=== PATIENT | male | born 1980 | race Caucasian/White ===

== ENCOUNTER 2017-03-19 03:02 | Inpatient (IN) | payer OTHER ==
[~2017-03-19] VITALS: Ht 180.3 cm; Wt 156.3 kg
[~2017-03-19 03:02] MED LIST: PARO10TA89 PO; VITAD1000 PO
[2017-03-19 03:49] LABS: BASOPHILS # (AUTO) 0.02 K/uL (0.00-0.20); BASOPHILS % (AUTO) 0.2 % (0.0-2.0); EOSINOPHILS # (AUTO) 0.02 K/uL (0.00-0.70); EOSINOPHILS % (AUTO) 0.25 % (1.0-6.0); HEMATOCRIT 43.8 % (41-53); HEMOGLOBIN 14.6 g/dL (13.5-17.5); LYMPHOCYTES # (AUTO) 1.6 K/uL (1.0-4.8); LYMPHOCYTES % (AUTO) 15.8 % (22.0-44.0); MEAN CORPUSCULAR HEMOGLOBIN 28.7 pg (26.0-34.0); MEAN CORPUSCULAR HGB CONC 33.3 G/dL (31.0-37.0); MEAN CORPUSCULAR VOLUME 86 fL (80-100); MONOCYTES # (AUTO) 0.3 K/uL (0.1-1.0); MONOCYTES % (AUTO) 2.9 % (2.0-9.0); PLATELET COUNT (AUTO) 228 K/uL (150-450); RED BLOOD CELL COUNT(AUTO) 5.08 MIL/uL (4.50-5.90); RED CELL DISTRIBUTION WIDTH 14.4 % (11.5-14.5); WHITE BLOOD COUNT (AUTO) 9.9 K/uL (4.5-11.0)
[2017-03-19 04:02] LABS: ANION GAP 14 mmol/L (8-16); CARBON DIOXIDE 22 mmol/L (22-29); CHLORIDE 105 mmol/L (98-107); CREATININE 1.02 mg/dL (0.60-1.30); GLOMERULAR FILTR. RATE CALC > 60 mL/min (>60); POTASSIUM 3.8 mmol/L (3.5-5.1); SODIUM SERUM 141 mmol/L (136-145); UREA NITROGEN, BLOOD 10 mg/dL (7-18)
[2017-03-19 04:09] LABS: ALANINE AMINOTRANSFERASE 43 U/L (12-78); ALBUMIN 3.8 g/dL (3.4-5.0); ASPARTATE AMINOTRANSFERASE 23 U/L (15-37); BILIRUBIN,TOTAL 0.2 mg/dL (0.1-1.0); TOTAL PROTEIN, SERUM 7.5 g/dL (6.4-8.2)
[2017-03-19] MEDS ORDERED: LORazepam 2 MG TABLET PO ONE (04:30)
[2017-03-19] MEDS ORDERED: HALOPERIDOL 5 MG TABLET PO PRN (04:30)
[2017-03-19 05:25] LABS: CHOL/HDL RATIO 3.9 (4.2-7.3)
[2017-03-19] MEDS ORDERED: CHOL200016 PO (13:49)
[2017-03-19] MEDS ORDERED: PARO20TA24 PO (13:49)
[2017-03-20] MEDS: VENLAFAXINE HCL 75 MG ER CAPSULE PO SCH (08:06)
[2017-03-20] MEDS: CHOLECALCIFEROL (VIT D3) 1,000 UNITS TABLET PO SCH (08:07)
[2017-03-20] MEDS ORDERED: ACETAMINOPHEN 325 MG TABLET PO PRN (09:45)
[2017-03-20 09:58] VITALS: BP 106/77
[2017-03-20] MEDS ORDERED: IBUPROFEN 600 MG TABLET PO PRN (10:15)
[2017-03-20 11:11] LABS: APPEARANCE,URINE CLEAR (CLEAR); GLUCOSE, URINE (UA) NEGATIVE (NEGATIVE); KETONES,URINE 15 mg/dL (NEGATIVE); LEUKOCYTE ESTERASE ,URINE NEGATIVE (NEGATIVE); OCCULT BLOOD,URINE NEGATIVE (NEGATIVE); PH,URINE 5.5 (5.0-8.0); PROTEIN,URINE NEGATIVE (NEGATIVE)
[2017-03-20 11:12] LABS: ADD UA MICROSCOPIC NO
[2017-03-20 16:00] VITALS: BP 140/85
[2017-03-21] MEDS: VENLAFAXINE HCL 75 MG ER CAPSULE PO SCH (08:23)
[2017-03-21] MEDS: CHOLECALCIFEROL (VIT D3) 1,000 UNITS TABLET PO SCH (08:24)
[2017-03-21 09:30] VITALS: BP 126/81
[2017-03-21] MEDS: LORazepam 2 MG TABLET PO PRN (09:45)
[2017-03-21 16:46] VITALS: BP 142/83
[2017-03-22] MEDS: CHOLECALCIFEROL (VIT D3) 1,000 UNITS TABLET PO SCH (08:55)
[2017-03-22] MEDS: VENLAFAXINE HCL 75 MG ER CAPSULE PO SCH (08:55)
[2017-03-22 09:35] VITALS: BP 166/90
[2017-03-22] MEDS: LORazepam 2 MG TABLET PO PRN (10:45)
[2017-03-22] MEDS: ATENOLOL 50 MG TABLET PO SCH (13:16)
[2017-03-22 16:41] VITALS: BP 129/79
[2017-03-23 08:05] VITALS: BP 126/87
[2017-03-23] MEDS ORDERED: ALBUTEROL SULFATE HFA 90 MCG/PUFF 8 GM INHALER IH PRN (08:30)
[2017-03-23] MEDS ORDERED: PETROLATUM,WHITE 71 GM JELLY TP PRN (08:30)
[2017-03-23] MEDS ORDERED: ONDANSETRON HCL 4 MG TABLET PO PRN (08:30)
[2017-03-23] MEDS ORDERED: CloNIDine HCL 0.1 MG TABLET PO PRN (08:30)
[2017-03-23] MEDS ORDERED: MAG HYDROX/AL HYDROX/SIMETH ES 30 ML SUSPENSION UDCUP PO PRN (08:30)
[2017-03-23] MEDS ORDERED: BENZOCAINE/MENTHOL LOZENGE [8 LOZENGES/PACKET] MM PRN (08:30)
[2017-03-23] MEDS ORDERED: BACITRACIN 28.4 GM OINTMENT TP PRN (08:30)
[2017-03-23] MEDS ORDERED: MAGNESIUM HYDROXIDE SUSPENSION 30 ML UDCUP PO PRN (08:30)
[2017-03-23] MEDS: ATENOLOL 50 MG TABLET PO SCH (08:47)
[2017-03-23] MEDS: CHOLECALCIFEROL (VIT D3) 1,000 UNITS TABLET PO SCH (08:47)
[2017-03-23] MEDS ORDERED: VENLAFAXINE HCL 150 MG ER CAPSULE PO SCH (09:00)
[2017-03-23] MEDS: LOPERAMIDE HCL 2 MG CAPSULE PO PRN (09:03)
[2017-03-23 17:00] VITALS: BP 133/85
[2017-03-23] MEDS ORDERED: HydrOXYzine PAMOATE 25 MG CAPSULE PO PRN (22:30)
[2017-03-24] MEDS: ZOLPIDEM TARTRATE 10 MG TABLET PO PRN ×2 (00:13→23:51)
[2017-03-24 04:35] VITALS: BP 127/78
[2017-03-24 08:00] VITALS: BP 113/61
[2017-03-24] MEDS ORDERED: VENLAFAXINE HCL 150 MG ER CAPSULE PO SCH (09:00)
[2017-03-24] MEDS: CHOLECALCIFEROL (VIT D3) 1,000 UNITS TABLET PO SCH (09:22)
[2017-03-24] MEDS: ATENOLOL 50 MG TABLET PO SCH (09:22)
[2017-03-24] MEDS: VENLAFAXINE HCL 75 MG ER CAPSULE PO SCH (09:22)
[2017-03-24 17:14] VITALS: BP 127/68
[2017-03-24] MEDS: LOPERAMIDE HCL 2 MG CAPSULE PO PRN (19:20)
[2017-03-25 06:30] LABS: BASOPHILS % (AUTO) 0.5 % (0.0-2.0); EOSINOPHILS % (AUTO) 1.3 % (1.0-6.0); HEMATOCRIT 46.6 % (41-53); HEMOGLOBIN 15.5 g/dL (13.5-17.5); LYMPHOCYTES # (AUTO) 2.4 K/uL (1.0-4.8); MEAN CORPUSCULAR HEMOGLOBIN 28.8 pg (26.0-34.0); MEAN CORPUSCULAR HGB CONC 33.2 G/dL (31.0-37.0); MEAN CORPUSCULAR VOLUME 87 fL (80-100); MONOCYTES # (AUTO) 0.6 K/uL (0.1-1.0); MONOCYTES % (AUTO) 5.4 % (2.0-9.0); NEUTROPHILS # (AUTO) 7.8 K/uL (1.8-7.7); NEUTROPHILS % (AUTO) 70.8 % (40.0-70.0); PLATELET COUNT (AUTO) 226 K/uL (150-450); RED BLOOD CELL COUNT(AUTO) 5.36 MIL/uL (4.50-5.90); RED CELL DISTRIBUTION WIDTH 14.2 % (11.5-14.5)
[2017-03-25 06:59] LABS: HEMOGLOBIN A1C 6.1 % (4.5-6.2)
[2017-03-25 07:04] LABS: ALANINE AMINOTRANSFERASE 46 U/L (12-78); ALBUMIN 3.4 g/dL (3.4-5.0); ANION GAP 8 mmol/L (8-16); ASPARTATE AMINOTRANSFERASE 21 U/L (15-37); BILIRUBIN,TOTAL 0.6 mg/dL (0.1-1.0); CALCIUM, TOTAL 8.5 mg/dL (8.8-10.5); CARBON DIOXIDE 26 mmol/L (22-29); CHLORIDE 105 mmol/L (98-107); CHOL/HDL RATIO 3.7 (4.2-7.3); CREATININE 1.01 mg/dL (0.60-1.30); GLOMERULAR FILTR. RATE CALC > 60 mL/min (>60); PHOSPHORUS 3.3 mg/dL (2.5-4.9); POTASSIUM 3.5 mmol/L (3.5-5.1); SODIUM SERUM 139 mmol/L (136-145); THYROID STIMULATING HORMONE 1.24 uIU/mL (0.36-3.74); TOTAL PROTEIN, SERUM 6.8 g/dL (6.4-8.2); UREA NITROGEN, BLOOD 12 mg/dL (7-18)
[2017-03-25 08:12] VITALS: BP 121/72
[2017-03-25] MEDS ORDERED: VENL-67 PO (08:19)
[2017-03-25] MEDS ORDERED: ATEN50TA PO (08:21)
[2017-03-25] MEDS ORDERED: VITAD1000 PO (08:22)
[2017-03-25] MEDS: VENLAFAXINE HCL 75 MG ER CAPSULE PO SCH (08:40)
[2017-03-25] MEDS: CHOLECALCIFEROL (VIT D3) 1,000 UNITS TABLET PO SCH (08:41)
[2017-03-25] MEDS: ATENOLOL 50 MG TABLET PO SCH (08:41)
[2017-03-26 04:07] LABS: HEPATITIS C AB SCREEN <0.1 s/co ratio (0.0-0.9)
== END 2017-03-25 12:30 | disposition home or self-care (01) | DRG 885 ==
LOC: EMS 03:03 → 3EX 05:15
PROVIDERS: ADMIT Psychiatry & Neurology Psychiatry; ATTEND Psychiatry & Neurology Psychiatry
DX: F33.2 Major depressive disorder, recurrent severe without psychotic features (principal); R45.851 Suicidal ideations; E66.01 Morbid (severe) obesity due to excess calories; E55.9 Vitamin D deficiency, unspecified; F14.90 Cocaine use, unspecified, uncomplicated; I10 Essential (primary) hypertension; Z81.8 Family history of other mental and behavioral disorders; Z91.5 Personal history of self-harm; Z88.0 Allergy status to penicillin; Z72.89 Other problems related to lifestyle
CPT/HCPCS: 82306; 83036; 83735; 84100; 84443; 86706; 86707; 86709; 86803; 87340; 87350; 99285; G0480

== ENCOUNTER 2017-05-01 23:35 | Inpatient (IN) | payer OTHER ==
[~2017-05-01] VITALS: Ht 188 cm; Wt 155.0 kg
[~2017-05-01 23:35] MED LIST changes: +ATEN50TA PO; -PARO10TA89 PO; +VENL-67 PO
[2017-05-01] MEDS ORDERED: ARIP5TAB8 PO (23:45)
[2017-05-01] MEDS ORDERED: HYD25 PO (23:45)
[2017-05-02 00:01] LABS: BASOPHILS % (AUTO) 0.6 % (0.0-2.0); EOSINOPHILS % (AUTO) 0.8 % (1.0-6.0); HEMATOCRIT 47.9 % (41-53); HEMOGLOBIN 15.8 g/dL (13.5-17.5); LYMPHOCYTES # (AUTO) 2.2 K/uL (1.0-4.8); LYMPHOCYTES % (AUTO) 27.8 % (22.0-44.0); MEAN CORPUSCULAR HEMOGLOBIN 28.8 pg (26.0-34.0); MEAN CORPUSCULAR HGB CONC 32.9 G/dL (31.0-37.0); MEAN CORPUSCULAR VOLUME 87 fL (80-100); MONOCYTES # (AUTO) 0.4 K/uL (0.1-1.0); MONOCYTES % (AUTO) 4.9 % (2.0-9.0); NEUTROPHILS # (AUTO) 5.1 K/uL (1.8-7.7); NEUTROPHILS % (AUTO) 65.9 % (40.0-70.0); PLATELET COUNT (AUTO) 255 K/uL (150-450); RED BLOOD CELL COUNT(AUTO) 5.48 MIL/uL (4.50-5.90); RED CELL DISTRIBUTION WIDTH 14.6 % (11.5-14.5); WHITE BLOOD COUNT (AUTO) 7.8 K/uL (4.5-11.0)
[2017-05-02 00:10] LABS: ANION GAP 11 mmol/L (8-16); CALCIUM, TOTAL 8.6 mg/dL (8.8-10.5); CARBON DIOXIDE 27 mmol/L (22-29); CHLORIDE 107 mmol/L (98-107); CREATININE 1.12 mg/dL (0.60-1.30); GLOMERULAR FILTR. RATE CALC > 60 mL/min (>60); POTASSIUM 3.3 mmol/L (3.5-5.1); SODIUM SERUM 145 mmol/L (136-145); UREA NITROGEN, BLOOD 6 mg/dL (7-18)
[2017-05-02 00:16] LABS: ALANINE AMINOTRANSFERASE 39 U/L (12-78); ALBUMIN 3.7 g/dL (3.4-5.0); ASPARTATE AMINOTRANSFERASE 30 U/L (15-37); BILIRUBIN,TOTAL 0.2 mg/dL (0.1-1.0); TOTAL PROTEIN, SERUM 7.8 g/dL (6.4-8.2)
[2017-05-02] MEDS ORDERED: HALOPERIDOL 5 MG TABLET PO ONE (00:45)
[2017-05-02] MEDS ORDERED: LORazepam 2 MG TABLET PO ONE (00:45)
[2017-05-02] MEDS ORDERED: HALOPERIDOL 5 MG TABLET PO PRN (01:00)
[2017-05-02] MEDS ORDERED: MAGNESIUM HYDROXIDE SUSPENSION 30 ML UDCUP PO PRN ×2 (01:00→08:45)
[2017-05-02] MEDS ORDERED: LORazepam 2 MG TABLET PO PRN (01:00)
[2017-05-02] MEDS ORDERED: LOPERAMIDE HCL 2 MG CAPSULE PO PRN ×2 (01:00→08:45)
[2017-05-02] MEDS ORDERED: MAG HYDROX/AL HYDROX/SIMETH ES 30 ML SUSPENSION UDCUP PO PRN ×2 (01:00→08:45)
[2017-05-02] MEDS ORDERED: POTASSIUM CHLORIDE 10% 40 MEQ/30 ML LIQUID UDCUP PO ONE (03:00)
[2017-05-02 04:06] VITALS: BP 129/90
[2017-05-02] MEDS ORDERED: INFLUENZA VIRUS VACCINE QVS 2017-18 (3YR+)/PF 60 MCG/0.5 ML SYRINGE IM ONE (05:00)
[2017-05-02] MEDS ORDERED: PNEUMOCOCCAL VACCINE POLYVALENT 0.5 ML VIAL [PPSV23] IM ONE (05:00)
[2017-05-02 08:44] VITALS: BP 134/83
[2017-05-02] MEDS ORDERED: ONDANSETRON HCL 4 MG TABLET PO PRN (08:45)
[2017-05-02] MEDS ORDERED: PETROLATUM,WHITE 71 GM JELLY TP PRN (08:45)
[2017-05-02] MEDS ORDERED: CloNIDine HCL 0.1 MG TABLET PO PRN (08:45)
[2017-05-02] MEDS ORDERED: BENZOCAINE/MENTHOL LOZENGE MM PRN (08:45)
[2017-05-02] MEDS ORDERED: ALBUTEROL SULFATE HFA 90 MCG/PUFF 8 GM INHALER IH PRN (08:45)
[2017-05-02] MEDS ORDERED: BACITRACIN 28.4 GM OINTMENT TP PRN (08:45)
[2017-05-02] MEDS: CHOLECALCIFEROL (VIT D3) 1,000 UNITS TABLET PO SCH (09:34)
[2017-05-02] MEDS: DOCUSATE SODIUM 100 MG CAPSULE PO SCH (09:34)
[2017-05-02] MEDS: OMEPRAZOLE 20 MG CAPSULE PO SCH (09:34)
[2017-05-02] MEDS: VENLAFAXINE HCL 150 MG ER CAPSULE PO SCH (10:14)
[2017-05-02 16:17] VITALS: BP 141/94
[2017-05-02] MEDS: MIRTAZAPINE 15 MG TABLET PO SCH (20:30)
[2017-05-02 22:19] VITALS: BP 127/76
[2017-05-02] MEDS: ZOLPIDEM TARTRATE 10 MG TABLET PO PRN (22:23)
[2017-05-03 01:53] VITALS: BP 135/86
[2017-05-03 08:57] VITALS: BP 132/75
[2017-05-03 09:01] LABS: HEMOGLOBIN A1C 5.9 % (4.5-6.2)
[2017-05-03] MEDS: DOCUSATE SODIUM 100 MG CAPSULE PO SCH (09:02)
[2017-05-03] MEDS: LISINOPRIL 10 MG TABLET PO SCH (09:02)
[2017-05-03] MEDS: OMEPRAZOLE 20 MG CAPSULE PO SCH (09:03)
[2017-05-03] MEDS: CHOLECALCIFEROL (VIT D3) 1,000 UNITS TABLET PO SCH (09:03)
[2017-05-03] MEDS: VENLAFAXINE HCL 150 MG ER CAPSULE PO SCH (09:03)
[2017-05-03 10:03] LABS: CHOL/HDL RATIO 3.9 (4.2-7.3); POTASSIUM 3.8 mmol/L (3.5-5.1); THYROID STIMULATING HORMONE 0.54 uIU/mL (0.36-3.74)
[2017-05-03 16:31] VITALS: BP 118/90
[2017-05-03] MEDS: MIRTAZAPINE 15 MG TABLET PO SCH (20:30)
[2017-05-04 00:58] VITALS: BP 117/78
[2017-05-04 08:13] VITALS: BP 126/70
[2017-05-04] MEDS: OMEPRAZOLE 20 MG CAPSULE PO SCH (08:13)
[2017-05-04] MEDS: CHOLECALCIFEROL (VIT D3) 1,000 UNITS TABLET PO SCH (08:13)
[2017-05-04] MEDS: LISINOPRIL 10 MG TABLET PO SCH (08:13)
[2017-05-04] MEDS: VENLAFAXINE HCL 150 MG ER CAPSULE PO SCH (08:13)
[2017-05-04] MEDS: SIMVASTATIN 10 MG TABLET PO SCH (08:13)
[2017-05-04] MEDS: OMEGA-3/DHA/EPA/FISH OIL 500 MG CAPSULE PO SCH (08:13)
[2017-05-04] MEDS: DOCUSATE SODIUM 100 MG CAPSULE PO SCH (08:13)
[2017-05-04 16:27] VITALS: BP 130/86
[2017-05-04] MEDS ORDERED: DOCUSATE SODIUM 100 MG CAPSULE PO PRN (16:45)
[2017-05-04] MEDS ORDERED: MIRTAZAPINE 15 MG TABLET PO SCH (21:00)
[2017-05-04] MEDS: ZOLPIDEM TARTRATE 10 MG TABLET PO PRN (21:43)
[2017-05-05 00:14] VITALS: BP 121/68
[2017-05-05] MEDS: CHOLECALCIFEROL (VIT D3) 1,000 UNITS TABLET PO SCH (08:07)
[2017-05-05] MEDS: OMEGA-3/DHA/EPA/FISH OIL 500 MG CAPSULE PO SCH (08:07)
[2017-05-05] MEDS: SIMVASTATIN 10 MG TABLET PO SCH (08:07)
[2017-05-05] MEDS: ARIPiprazole 5 MG TABLET PO SCH (08:08)
[2017-05-05] MEDS: OMEPRAZOLE 20 MG CAPSULE PO SCH (08:08)
[2017-05-05] MEDS: LISINOPRIL 10 MG TABLET PO SCH (08:12)
[2017-05-05 09:00] VITALS: BP 102/80
[2017-05-05] MEDS ORDERED: VENLAFAXINE HCL 75 MG ER CAPSULE PO SCH (09:00)
[2017-05-05 16:25] VITALS: BP 115/87
[2017-05-05] MEDS ORDERED: MIRTAZAPINE 15 MG TABLET PO SCH (21:00)
[2017-05-05] MEDS: ZOLPIDEM TARTRATE 10 MG TABLET PO PRN (22:00)
[2017-05-06 00:11] VITALS: BP 126/78
[2017-05-06] MEDS ORDERED: MIRT45TA PO (08:19)
[2017-05-06] MEDS ORDERED: VITAD1000 PO (08:23)
[2017-05-06] MEDS ORDERED: OMEG-50 PO (08:23)
[2017-05-06] MEDS ORDERED: OMEP10SU2 PO (08:23)
[2017-05-06] MEDS: CHOLECALCIFEROL (VIT D3) 1,000 UNITS TABLET PO SCH (08:23)
[2017-05-06] MEDS: OMEPRAZOLE 20 MG CAPSULE PO SCH (08:23)
[2017-05-06] MEDS ORDERED: OMEP20 PO (08:23)
[2017-05-06] MEDS: ARIPiprazole 5 MG TABLET PO SCH (08:23)
[2017-05-06] MEDS: LISINOPRIL 10 MG TABLET PO SCH (08:23)
[2017-05-06] MEDS: OMEGA-3/DHA/EPA/FISH OIL 500 MG CAPSULE PO SCH (08:23)
[2017-05-06] MEDS: SIMVASTATIN 10 MG TABLET PO SCH (08:23)
[2017-05-06] MEDS ORDERED: LISI-661 PO (08:24)
[2017-05-06] MEDS ORDERED: SIMV-259 PO (08:24)
[2017-05-06 08:44] VITALS: BP 118/83
[2017-05-16] MEDS ORDERED: HYDR-4031 PO (12:03)
== END 2017-05-06 13:00 | disposition home or self-care (01) | DRG 885 ==
LOC: EMS 23:36 → B2X 05-02 02:49
PROVIDERS: ADMIT Psychiatry & Neurology Psychiatry; ATTEND Psychiatry & Neurology Psychiatry
DX: F33.2 Major depressive disorder, recurrent severe without psychotic features (principal); R45.851 Suicidal ideations; Z68.41 Body mass index [BMI] 40.0-44.9, adult; E55.9 Vitamin D deficiency, unspecified; E66.01 Morbid (severe) obesity due to excess calories; E87.6 Hypokalemia; F14.10 Cocaine abuse, uncomplicated; F41.9 Anxiety disorder, unspecified; G47.00 Insomnia, unspecified; I10 Essential (primary) hypertension; K21.9 Gastro-esophageal reflux disease without esophagitis; K59.00 Constipation, unspecified; F10.20 Alcohol dependence, uncomplicated; F11.10 Opioid abuse, uncomplicated; F14.90 Cocaine use, unspecified, uncomplicated; R73.9 Hyperglycemia, unspecified; E78.2 Mixed hyperlipidemia; Z88.0 Allergy status to penicillin; Z79.899 Other long term (current) drug therapy; Z59.0 Homelessness
CPT/HCPCS: 83036; 84132; 84439; 84443; 90471; 99285; G0480; Q0162